=== PATIENT | male | born 1980 | race American Indian/Alaskan Native ===

== ENCOUNTER 2019-07-05 16:02 | Emergency (ER) | payer OTHER ==
[2019-07-05 16:11] VITALS: BP 122/78
--- NOTE | 2019-07-05 16:12 | Emergency Department Report ---
Upper Respiratory HPI - HPI Chief Complaint: Upper Respiratory Infection Stated Complaint: FLU Time Seen by Provider: 07/05/19 16:08 Duration: 2 Days URI Symptoms: Rhinorrhea: Yes, Sore Throat: No, Ear Pain: No, Cough: No, Shortness of Breath: No, Sick Contacts: No, Unable to Take Fluids: No, Urine Output Abnormal: No, Listless Behavior: No Other History: This is a 38-year-old male nontoxic well in appearnce with no signs of distress presents with nasal congestion and rhinnorrhea x2 days. HX of pollen allergies. Patient denies any cough, body aches, chest pain, shortness of breathe, fever, chills, nausea, vomiting, headache, stiff neck, abdominal pain, numbness or tingling. Patient denies any recent travels, long car rides, or recent hospital stays. Denies any allergies or significant PMH. - Home Meds and Allergies Home Medications: Previous Rx's Medication Instructions Recorded Last Taken Type Cyclobenzaprine [Flexeril] 10 mg PO Q8H PRN #18 tablet 08/23/18 Unknown Rx Naproxen 500 mg PO Q12H PRN #20 tablet 08/23/18 Unknown Rx Allergies/Adverse Reactions: Allergies Allergy/AdvReac Type Severity Reaction Status Date / Time No Known Allergies Allergy Verified 07/05/19 16:04 ED Review of Systems ROS: Stated complaint: FLU Other details as noted in HPI Constitutional: denies: chills, fever Eyes: denies: eye pain, eye discharge, vision change ENT: congestion. denies: ear pain, throat pain Respiratory: denies: cough, shortness of breath, wheezing Cardiovascular: denies: chest pain, palpitations Endocrine: no symptoms reported Gastrointestinal: denies: abdominal pain, nausea, diarrhea Genitourinary: denies: urgency, dysuria Musculoskeletal: denies: back pain, joint swelling, arthralgia Skin: denies: rash, lesions Neurological: denies: headache, weakness, paresthesias Psychiatric: denies: anxiety, depression Hematological/Lymphatic: denies: easy bleeding, easy bruising ED Past Medical Hx - Past Medical History Previous Medical History?: No - Surgical History Past Surgical History?: No - Social History Smoking Status: Never Smoker Substance Use Type: None - Medications Home Medications: Home Medications Medication Instructions Recorded Confirmed Last Taken Type Cyclobenzaprine [Flexeril] 10 mg PO Q8H PRN #18 tablet 08/23/18 Unknown Rx Naproxen 500 mg PO Q12H PRN #20 tablet 08/23/18 Unknown Rx ED Bronchiolitis Physical Exam - Exam General: Vital signs noted. No distress. Alert and acting appropriately. HEENT: No Pharyngeal Erythema, No Conjuctival Injection, No Dry Mucous Membranes, No Rhinorrhea Ear: Neither TM Bulge, Neither TM Erythema, Neither EAC Discharge Neck: No Adenopathy, No Rigidity Lungs: Yes Clear Lung Sounds, Yes Good Air Exchange, No Wheezes, No Stridor, No Cough, No Nasal Flaring, No Retractions, No Use of Accessory Muscles Heart: Yes Regular, No Murmur Abdomen: Yes Normal Bowel Sounds, No Tenderness, No Peritoneal Signs Skin: No Rash, No Eczema Neurologic: Alert and oriented, no deficits. Musculoskeletal: Unremarkable. ED Physical Exam - General Limitations: No Limitations ED Course - Reevaluation(s) Reevaluation #1: 07/05/19 16:11 Patient is speaking in full sentences with no signs of distress noted. ED Medical Decision Making - Medical Decision Making 38-year-old male that presents with allergic rhinnintis Patient is stable and was examined by me. Patient was educated on OTC suppurative care and medications. Vital signs are stable. Patient was instructed to Follow-up with a primary care doctor in 3-5 days or if symptoms worsen and continue return to emergency room as soon as possible. At time of discharge, the patient does not seem toxic or ill in appearance. No acute signs of distress noted. Patient agrees to discharge treatment plan of care. No further questions noted by the patient. Critical care attestation.: If time is entered above; I have spent that time in minutes in the direct care of this critically ill patient, excluding procedure time. ED Disposition Clinical Impression: Allergic rhinitis Qualifiers: Allergic rhinitis trigger: pollen Allergic rhinitis seasonality: seasonal Qualified Code(s): J30.1 - Allergic rhinitis due to pollen Disposition: MED SCREENING EXAM-LEFT Is pt being admited?: No Does the pt Need Aspirin: No Condition: Stable Instructions: Allergic Rhinitis (ED) Additional Instructions: Follow-up with a primary care doctor in 3-5 days or if symptoms worsen and continue return to emergency room as soon as possible. Referrals: PRIMARY CARE, [Referring] - 3-5 Days FELIPE HORTON MD [Staff Physician] - 3-5 Days [facility] [Provider Group] - 3-5 Days Forms: Work/School Release Form(ED)
== END 2019-07-05 16:27 | disposition left against medical advice (07) ==
LOC: ED 16:02
DX: J30.1 Allergic rhinitis due to pollen (principal)
CPT/HCPCS: 99281

== ENCOUNTER 2021-10-30 17:00 | Emergency (ER) | payer OTHER ==
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
[2021-10-30] MEDS ORDERED: traMADol 50 MG TAB PO ONE (22:28)
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
[2021-10-30 23:03] VITALS: BP 121/68
== END 2021-10-31 00:06 | disposition home or self-care (01) ==
LOC: ED 17:00
DX: S16.1XXA Strain of muscle, fascia and tendon at neck level, initial encounter (principal); S39.012A Strain of muscle, fascia and tendon of lower back, initial encounter; Z79.899 Other long term (current) drug therapy; V87.7XXA Person injured in collision between other specified motor vehicles (traffic), initial encounter; Y93.89 Activity, other specified; Y92.488 Other paved roadways as the place of occurrence of the external cause; Y99.8 Other external cause status
CPT/HCPCS: 72040; 72100; 99283